=== PATIENT | female | born 1995 ===

== ENCOUNTER 2016-09-06 16:28 | Emergency (ER) | payer MEDICAID, OTHER ==
[~2016-09-06] VITALS: Ht 157.5 cm; Wt 160.0 kg
[~2016-09-06 16:28] MED LIST: ALBU8.5H2 INHALATION; BECL8.7A6 IH; ONDA8TAB10 PO
[2016-09-06 16:40] VITALS: BP 140/89; PULSE 82; RESP 16; O2SAT 98
--- NOTE | 2016-09-06 17:18 | ED.REPORT ---
HPI-Extremity Problem Lower Date of Service Sep 06, 2016 ED Provider: Abdulaziz Case PA-C Giulia is generally healthy but morbidly obese 21-year-old female who presents with left ankle pain. She states the pain started when she was walking down the slippery slope and twisted her ankle. She describes rotating her foot medially, but denies inverting or everting the ankle. She reports that she is able to walk on the foot with a significant amount of pain. She has been taking Tylenol and Motrin in amounts her engagement specialist thinks that is excessive. Nursing Notes Stated Complaint: ANKLE PAIN Chief Complaint: Extremity Trauma Nursing Notes Reviewed: Yes Allergies: Coded Allergies: No Known Allergies (Verified Allergy, Severe, 09/06/16) Scheduled Albuterol HFA (Proair HFA) 8.5 Gm Hfa.aer.ad 2 PUFFS INHALATION Q4H Beclomethasone Dipropionate (Qvar) 8.7 Gm Aer.w.adap 8.7 GM IH BID Ondansetron ODT (Ondansetron ODT) 8 Mg Tab.rapdis 8 MG PO QID General Time Seen by MD: 17:00 Chief Complaint Ankle injury left Past Medical History Past Medical History generally healthy morbidly obese Reports: Asthma Past Surgical History thumb Reports: Tonsillectomy Smoking History Current Some Day Smoker Social History Alcohol Use: Denies alcohol use Drug Use: Denies drug use Other Social History: Good social support, Lives with parents, Local resident Occupation lives with family Ambulatory Status Independent Review of Systems Review of Systems Note: Negative unless stated otherwise in history of present illness Physical Exam General: Well appearing, morbidly obese, no acute distress. Left ankle: Minimal swelling, purple ecchymoses inferior to the deltoid ligament and anterior talofibular. Mild tenderness over the posterior medial malleolus, no tenderness over the deltoid ligament, anterior talofibular ligament, calcaneofibular ligament, posterior talofibular ligament, base of fifth metatarsal, or navicular bone. Achilles tendon intact. Dorsalis pedis pulse 2+, posterior tibialis not appreciated bilaterally. Brisk capillary refill. Sensation intact. Left knee: Nontender full range of motion Left hip: Nontender full range of motion Head: Atraumatic, normocephalic. Eyes: No scleral icterus or injection. No discharge. Vision grossly intact. ENT: Voice clear, hearing grossly intact. Skin: Warm and dry. Neurological: Grossly nonfocal. Psychological: alert and oriented. Speech appropriate, linear and logical. Behavior appropriate. Initial Vital Signs Vital Signs (First) Date Time Temp Pulse Resp B/P Pulse Ox O2 Delivery O2 Flow Rate FiO2 09/06/16 16:40 36.4 82 16 140/89 98 Room Air Initial VS: Reviewed, Vital signs normal Interpretation & Diagnostics X-Ray Interpretation Xray Interpretation: PROCEDURE: X-RAY LEFT ANKLE, MINIMUM THREE VIEWS ([id number]) INDICATIONS: 21 year-old female with left ankle pain after fall 3 days ago. IMPRESSION: Mildly displaced vertical fracture through the medial malleolus, with overlying soft tissue swelling. Re-Eval/Medical Decision Med Decision/Clinical Course Morbidly obese 21-year-old female presents with left ankle pain that began as she inwardly rotated foot when she slipped on ice. Physical exam reveals relatively little tenderness, only a little bit over the medial malleolus. There is ecchymosis laterally and medially on the foot and minimal swelling. Neurovascularly intact distal. X-ray reveals a minimally displaced fracture of the medial malleolus. Placed patient in a cast boot, provided crutch training, advised [id number] analgesia, provided referral to orthopedist follow-up in 5-7 days. All questions to the best of my ability Discharge & Departure Impression: Primary Impression: Fx medial malleolus-closed Encounter type: initial encounter Fracture alignment: displaced Laterality : left Qualified Code: S82.52XA - Displaced fracture of medial malleolus of left tibia, initial encounter for closed fracture Disposition: Home Discharge Condition All VS Reviewed: Yes Condition: Stable Patient Instructions: Splint Care (ED), Crutch Instructions (ED) Additional Instructions: Evaluation for left ankle pain the emergency department. X-rays revealed a fracture of the medial malleolus, which is the inside part of your ankle bone. We put a cast boot on and trained U and using crutches. Please do not bear weight on the foot until you follow-up with orthopedics. I will provide referral to see Dr. Art Anderson. Please contact her office tomorrow to arrange follow-up in 5-7 day. The pain is best treated with 600 mg of ibuprofen (Advil, Motrin) every 6 hours , or 1000 mg of acetaminophen (Tylenol) every 6 hours. These drugs can be taken at the same time for more severe pain. Return to emergency department for any new or worsening symptoms including increasing pain, numbness or tingling in the foot. Referrals: Art Anderson MD EDSupervising Provider for [facility]: Sofia Saba MD copies to: Marlene Shannon MD; rAt Anderson MD, Seth PA-C Sep 06, 2016 17:18
--- NOTE | 2016-09-06 17:40 | DRSVH ---
PROCEDURE: X-RAY LEFT ANKLE, MINIMUM THREE VIEWS ([id number]) INDICATIONS: 21 year-old female with left ankle pain after fall 3 days ago. TECHNIQUE: 3 views of the ankle were acquired. COMPARISON: None. FINDINGS: Bones: There is mildly displaced vertical fracture through the medial malleolus. Ankle mortise is nor marvin aligned. No suspicious bony lesions. Soft tissues: There is medial malleolar soft tissue swelling. No tibiotalar joint effusion. Winona s tendon appears normal. IMPRESSION: Mildly displaced vertical fracture through the medial malleolus, with overlying soft tiss ue swelling. Dictated by: Alessandro Chan M.D. on 09/06/2016 at 17:32 Approved by: Alessandro Chan M.D. on 09/06/2016 at 17:34
[2016-09-06] MEDS ORDERED: IBUP-1827 PO (18:38)
[2016-09-06] MEDS ORDERED: ACET-171 PO (18:38)
== END 2016-09-06 18:50 | disposition home or self-care (01) ==
LOC: SED 16:28
DX: S82.52XA Displaced fracture of medial malleolus of left tibia, initial encounter for closed fracture (principal); X50.9XXA Other and unspecified overexertion or strenuous movements or postures, initial encounter; Y93.01 Activity, walking, marching and hiking; Y99.8 Other external cause status; Y92.019 Unspecified place in single-family (private) house as the place of occurrence of the external cause; F17.200 Nicotine dependence, unspecified, uncomplicated; E66.01 Morbid (severe) obesity due to excess calories; J45.909 Unspecified asthma, uncomplicated; Z79.51 Long term (current) use of inhaled steroids